=== PATIENT | male | born 1955 ===

== ENCOUNTER 2024-02-15 15:36 | Emergency (ER) | payer OTHER, SELFPAY ==
[2024-02-15 15:42] VITALS: BP 162/78
[2024-02-15 16:13] VITALS: BP 157/63
--- NOTE | 2024-02-15 17:11 | ED.GENMED ---
History of Present Illness
General
Chief Complaint: Heart Rate Problem
Source: patient
Exam Limitations: none
Time Seen by Provider: 02/15/24 16:27
History of Present Illness
History of Present Illness:
68-year-old male with a history of CAD with stenting most recent distal LAD of [facility] in 2009, [id number] diabetes, dyslipidemia, severe aortic stenosis status post TAVR on at [facility] presents after
noticing bradycardia on routine vital sign checking at home. Patient says that he has been feeling well since his TAVR and has checked his pulse ox at times which has been normal but then he noticed yesterday that he would have feeling of
palpitations and irregular beats and his pulse ox was reading 35 is a heart rate. He had no symptoms of chest pain or shortness of breath or lightheadedness. He has not had any syncopal events. He reached out to his domain architect Dr. Alejandre who
had him come in today for an EKG and called him saying that he needs to come to the hospital and that he might need a pacemaker. Patient has not had any leg swelling, exertional shortness of breath. He is eating and drinking normally.
Past History
Past History
ED Past Medical History: HTN, Hypercholesterolemia, NIDDM and Other (Aortic stenosis)
ED Past Surgical History: Cardiac (TAVR)
Social History
Tobacco: Non-smoker
Alcohol: None
Drug: None
Personal:
Living: with family
Review of Systems
Review of Systems
Allergies reviewed?: Yes
All Other Systems: Not applicable
Phy Exam
Physical Exam
Physical Exam:
GENERAL: Alert , in no apparent distress
EYE: pupils equal and reactive
NECK: Supple
ENT: o/p clr, mmm.
CARDIAC: Irregular, patient has periods of regularity with a rate of 70s and then has had episodes of bigeminy with a slower rate, no edema, subtle murmur
LUNGS: Clear breath sounds bilaterally, no acute respiratory distress, no wheezes/rales/rhonchi
ABDOMEN: Soft, without focal tenderness, no r/g, no cvat, normal bowel sounds
NEUROLOGICAL: Alert and oriented, no focal neuro deficits
SKIN: Warm and dry, skin intact.
MUSCULOSKELETAL: No edema, well perfused. neg bryan's sign
PSYCH: Normal and appropriate interaction.
Course
Orders/Labs/Results
Orders:
Orders
02/15/24 15:43
Electrocardiogram (*1) Urgent
Reason for Study: Bradycardia / Tachycardia
EKG- Treatment ONCE
02/15/24 17:14
CR Chest - 2 Views Urgent
Comment:
Reason For Exam: recent TAVR
02/15/24 17:19
Complete Blood Count/With Diff Urgent
Comprehensive Metabolic Panel Urgent
Magnesium Urgent
NT-proBNP Urgent
TSH Reflex To Free T4 Urgent
Abnormal Lab Results
02/15/24
17:19
RBC 4.23 L 10^6/uL
(4.70-6.10)
Hgb 12.8 L g/dL
(13.0-18.0)
Hct 37.7 L %
(39.0-52.0)
Eosinophils % 7.0 H %
(0-6)
BUN 21 H mg/dl
(9-20)
Glucose 100 H mg/dl
(70-99)
Magnesium 2.4 H mg/dl
(1.6-2.3)
02/15/24 17:19
02/15/24 17:19
Vital Signs
Initial and Last Documented VS:
Initial Vital Signs
Temp Pulse Resp BP Pulse Ox
98.5 F 71 18 162/78 99
02/15/24 15:42 02/15/24 15:42 02/15/24 15:42 02/15/24 15:42 02/15/24 15:42
Last Documented Vital Signs
Temp Pulse Resp BP Pulse Ox
98.5 F 71 16 134/79 96
02/15/24 15:42 02/15/24 17:45 02/15/24 17:45 02/15/24 17:14 02/15/24 17:51
MDM/Problems Addressed
Differential Diagnosis Includes:
PVCs, bradycardia, sick sinus syndrome
MDM/Problems Addressed:
68 y/o M with h/o CAD stenting at [place], last pci 2009 but had sevre and had TAVR on 02/09 in [place]
took his HR just to monitor and sometimse gets numbers in the 30s; no symptoms; no cp, sob;
he feels irregular beats too;
had EKG in the office dr acevedo today and was told to come in;
he was sent in for eval, echo, and possibly pacer;
here he has some PVC, occ bigeminy but then has had NSR in the 70s;
He is completely asymptomatic. He is well-appearing. He is stable blood pressure. I discussed the case with both ED attending and domain architect Dr. Leyva who saw the patient. They are going to arrange for outpatient prompt echo tomorrow and a
2-week Holter. They said based on the patient being asymptomatic and stable he can go home. Patient was in agreement with this.
*Critical Care Note
Total Time (30-74mins, 75-104mins- exclusive of procedures): Not Applicable
ED Attending Note
-
Portions of this chart may have been created with voice recognition software.� Occasional wrong word or��sound alike� substitutions may have occurred due to the inherent limitations of voice recognition software.
Discharge Plan
Departure
Patient Disposition: Home (Routine Discharge)
Date of Disposition: 02/15/24
Time of Disposition: 18:43
Patient with high blood pressure during this ER visit?: No
Condition: Fair
Covid-19: Not Applicable
Discharge Problem:
Asymptomatic PVCs
Instructions: Ventricular premature beats
Referrals:
Zahra Blackburn MD [Family Provider] - Follow up in 2-3 days
Activity Restrictions/Additional Instructions:
The domain architect are going to arrange for prompt follow-up including an echocardiogram tomorrow. They will call you and let you know what to do for this in the morning. They also were going to arrange a 2-week monitor. You had no signs of any
heart failure and your blood work was reassuring.
Return for any concerns like passing out, chest pain, shortness of breath, lightheadedness etc.
Interventions
Interventions:
*Risk Screen - Suicide Last Done: 02/15/24 15:42
*General Assessment Last Done: 02/15/24 15:42
*Neglect/Abuse Screening Last Done: 02/15/24 15:42
*ED COVID-19 Vaccine History Last Done: 02/15/24 15:42
ED- Cardiac Assessment Last Done: 02/15/24 16:48
ED- Pulmonary Assessment Last Done: 02/15/24 16:48
Discharge Date and Time
Print Language: Luxembourger
[2024-02-15 17:14] VITALS: BP 134/79
[2024-02-15 17:24] LABS: % Basophils 0.8 % (0-2); % Immature Granulocytes 0.2 % (0-0.5); % Lymphocytes 27.2 % (20.5-51.1); % Monocytes 7.8 % (1.7-9.3); Absolute Basophils 0.1 10^3/uL (0-0.2); Absolute Eosinophils 0.4 10^3/uL (0-0.7); Absolute Lymphocytes 1.7 10^3/uL (1.2-3.4); Absolute Monocytes 0.5 10^3/uL (0.1-0.6); Absolute Neutrophils 3.5 10^3/uL (1.4-6.5); Hematocrit 37.7 % (39.0-52.0); Hemoglobin 12.8 g/dL (13.0-18.0); Mean Corpuscular Hgb 30.3 pg (27.0-31.0); Mean Corpuscular Volume 89.1 fL (80.0-94.0); Mean Platelet Volume 9.9 fL (7.4-10.4); Nucleated Red Blood Cells % 0 % (-); Platelet Count 172 10^3/uL (130-400); Red Blood Cell Count 4.23 10^6/uL (4.70-6.10); Red Cell Dist. Width 12.7 % (11.5-14.5); White Blood Cell Count 6.2 10^3/uL (4.8-10.8)
--- NOTE | 2024-02-15 17:41 | CON.CAR ---
Addendum entered and electronically signed by Ramakrishna Barba MD 02/17/24 09:20:
Patient was discussed with primary neuroscience specialist, custom shop worker Dr. Hawkins, and EP Dr Woodruff. It was felt that given the absence of symptoms despite new first-degree AV block and left bundle branch block there is no indication for
urgent pacemaker implantation. Certainly, if he were develop progressive heart block, high degree AV block, or symptoms this may warrant further investigation with implantation of a permanent pacemaker. However, there is no clear indication at
this time. We will obtain a limited echocardiogram to ensure proper function of TAVR valve and extended monitor to observe possible high degree AV block.
This is a late addendum patient seen and examined on Feb 15, 2024, and discussed on that date.
Addendum entered and electronically signed by Ramakrishna Barba MD 02/15/24 18:00:
I saw and examined the patient.
The [employer] SUPERVISOR's note was reviewed and I agree with the note.
Comment: 68-year-old male (known to Dr. Breezy Philip, his primary neuroscience specialist), with coronary artery disease, NIDDM, hypertension, dyslipidemia, and severe aortic stenosis with #29 Bond FELI S3 at [place] 02/10/2024 who presents to the
emergency department with a chief complaint of abnormal EKG. He has no symptoms and after discussion with Dr Hawkins, given absence of symptoms he will call primary neuroscience specialist for 2 week event monitor. Additionally, we will obtain limited TTE
either tomorrow or .
Original Note:
Consultation
Consultation Request
Date/Time Consultation Requested: 02/15/2024 17:30
Date/Time Consultation Performed: 02/15/2024 17:40
Requesting Provider: JOAO Saba
Performing Provider: JOAO Ham for Dr. Barba
Reason for Consultation: Abnormal EKG
Medical History
-
Chief Complaint: Abnormal EKG
History of Present Illness:
The patient is a 68-year-old male (known to Dr. Breezy Philip, his primary neuroscience specialist), with coronary artery disease, NIDDM, hypertension, dyslipidemia, and severe aortic stenosis with #29 Bond FELI S3 at [place] 02/10/2024 who presents to
the emergency department with a chief complaint of abnormal EKG. He was manually checking his pulse he felt it to be in the 30s. He then checked his blood pressure. It recorded his heart rate to also be in the 30s. He called his primary
neuroscience specialist and presented to their office for an EKG. He was in [facility]. He was found to have a left bundle branch block that was not present on his post TAVR EKG. He was referred to the emergency room for evaluation. Thankfully, this patient
is asymptomatic and has no palpitations, nor dizziness, nor presyncope.
He is due to have a staged PCI of his left circumflex 03/21/2024.
Past Medical History
Past Medical History: CAD, HTN, Hypercholesterolemia and Valvular Disease (Severe aortic stenosis s/p TAVR [02/10/2024, [place]])
Past Surgical History: Cardiac (TAVR [02/10/2024, [place]])
Social History
Tobacco: Non-Smoker
Drug: None
Personal:
Living: With Family
Family History
Family History: Reviewed & Not Pertinent
Allergies / Home Medications
Allergy/AdvReac Type Severity Reaction Status Date / Time
No Known Allergies Allergy Unverified 02/15/24 15:45
Review of Systems
-
History Source: Patient
All other systems: Negative unless noted
Constitutional: No Symptoms
EENT: No Symptoms
Respiratory: No Symptoms
Cardiac: No Symptoms
Abdomen/GI: No Symptoms
: No Symptoms
Musculoskeletal: No Symptoms
Skin: No Symptoms
Neurological: No Symptoms
Endocrine: No Symptoms
Hematologic/Lymphatic: No Symptoms
Physical Exam
Vital Signs
Temp Pulse Resp BP Pulse Ox
98.5 F 76 14 157/63 99
02/15/24 15:42 02/15/24 16:46 02/15/24 16:30 02/15/24 16:13 02/15/24 15:42
Lab Results
02/15/24 17:19
Physical Exam
General: Well Developed, Well Nourished, No Apparent Distress and Comfortable
HEENT: Normocephalic, Anicteric and Moist Mucous Membranes
Respiratory: Clear and Non Labored Respirations
Cardiac: S1/S2 and Regular Rhythm; Negative Peripheral Edema
Breast: Deferred by me
GI: Soft, Non Tender and Non Distended
Rectal: Deferred by Provider
Genito-urinary: No Costovertebral Tender
Musculoskeletal: No Clubbing, No Cyanosis and No Edema
Skin: Warm and Dry
Neuro: AO x 3
Hematologic/Lymphatic: No Lymphadenopathy
Psych: Calm
Impression / Plan
-
Bigeminy
-His metoprolol succinate 25 mg was stopped post TAVR, continue to hold
-He is having no palpitations
Left bundle branch block
-Not present on 02/11/2024 EKG from [place]
-We discussed symptoms when he should return to the emergency room such as syncope, presyncope, dizziness, and lightheadedness
-No indication for pacemaker at this time
-Outpatient cardiac monitoring to be ordered by primary neuroscience specialist
Severe to stenosis s/p TAVR (Bond FELI S3, 02/10/2024)
-Available records reviewed, no intra nor postprocedural complication
-Post TAVR mean gradient 7 mmHg
CAD
-Stable without chest pain
-Staged PCI of the left circumflex scheduled 03/21/2024 [place]
-Continue medical management
Hypertension
NIDDM
Dyslipidemia
Data Reviewed
-
EKG: Report Reviewed by me (Sinus rhythm, bigeminy, LBBB, rate 74)
Labs: Labs Reviewed by me
Old Records: Reviewed
[2024-02-15 17:47] LABS: ALT (SGPT) 18 U/L (0-50); AST (SGOT) 20 U/L (17-59); Albumin 4.7 g/dl (3.5-5.0); Alkaline Phosphatase 52 U/L (38-126); Blood Urea Nitrogen 21 mg/dl (9-20); Calcium 9.9 mg/dl (8.4-10.2); Carbon Dioxide 25 mmol/L (22-30); Chloride 105 mmol/L (98-107); Glucose 100 mg/dl (70-99); Magnesium 2.4 mg/dl (1.6-2.3); NT-proBNP 374 pg/ml; Potassium 4.8 mmol/L (3.5-5.1); Sodium 143 mmol/L (135-145); Total Bilirubin 0.4 mg/dl (0.2-1.3); Total Protein 7.2 g/dl (6.3-8.2); eGFR > 60.00
[2024-02-15 18:17] LABS: TSH Reflex To Free T4 1.53 uIU/ml (0.47-4.68)
== END 2024-02-15 19:07 | disposition home or self-care (01) ==
LOC: EMR 15:36
PROVIDERS: Physician Assistant; EMERGENCY PHYSICIAN Student in an Organized Health Care Education/Training Program; FAMILY PHYSICIAN Family Medicine; OTHER PHYSICIAN Internal Medicine Cardiovascular Disease
DX: I49.3 Ventricular premature depolarization (principal); I25.10 Atherosclerotic heart disease of native coronary artery without angina pectoris; I10 Essential (primary) hypertension; E78.00 Pure hypercholesterolemia, unspecified; E11.9 Type 2 diabetes mellitus without complications; I35.0 Nonrheumatic aortic (valve) stenosis
CPT/HCPCS: 99285; 71046; 80053; 83735; 83880; 84443; 85025; 93005

== ENCOUNTER → 2024-02-16 10:15 | Outpatient (REF) | payer OTHER, SELFPAY | LOC: RCS 10:15 | PROVIDERS: ATTENDING PHYSICIAN Internal Medicine Cardiovascular Disease; FAMILY PHYSICIAN Family Medicine | DX: Z95.2 Presence of prosthetic heart valve (principal) | CPT/HCPCS: 93306 ==